=== PATIENT | male | born 1985 | race Two or more races ===

== ENCOUNTER 2018-11-15 22:49 | Emergency (ER) | payer SELFPAY ==
[~2018-11-15] VITALS: Ht 180.3 cm; Wt 79.4 kg
[2018-11-15 22:49] VITALS: BP 141/80
[2018-11-15] MEDS ORDERED: HYDROMORPHONE INJ 2 MG/ML DISP.SYRIN ONE (23:15)
[2018-11-15] MEDS ORDERED: TDAP [DIPH/PERTUSSIS/TET] 0.5 ML VIAL IM ONE ×2 (23:15→23:30)
[2018-11-15] MEDS ORDERED: ONDANSETRON 4 MG TAB.RAPDIS ONE (23:15)
--- NOTE | 2018-11-15 23:23 | NUR ---
RADIOLOGY AT BEDSIDE FOR XRAY
[2018-11-15] MEDS ORDERED: HYDROMORPHONE INJ 2 MG/ML DISP.SYRIN IM ONE (23:30)
[2018-11-15] MEDS ORDERED: ONDANSETRON 4 MG TAB.RAPDIS SL ONE (23:30)
[2018-11-16] MEDS ORDERED: CEFAZOLIN 1 GM VIAL IM ONE (00:30)
[2018-11-16] MEDS ORDERED: CEFTRIAXONE 1 G VIAL ONE (01:25)
[2018-11-16] MEDS ORDERED: LIDOCAINE 1% INJ 50 ML MDV IJ ONE (01:25)
[2018-11-16] MEDS ORDERED: CEFTRIAXONE 1 G VIAL IM ONE (01:30)
== END 2018-11-16 03:24 | disposition home or self-care (01) ==
LOC: ER 22:49
DX: S68.111A Complete traumatic metacarpophalangeal amputation of left index finger, initial encounter (principal); W23.0XXA Caught, crushed, jammed, or pinched between moving objects, initial encounter; Y93.89 Activity, other specified; Y92.89 Other specified places as the place of occurrence of the external cause; Y99.8 Other external cause status
CPT/HCPCS: 73140; 90471; 90715; 96372 ×2; 99283; J0696; J1170; J3490; Q0162; J0690